=== PATIENT | female | born 1980 | race African-American/Black ===

== ENCOUNTER 2019-01-09 11:58 | Emergency (ER) ==
[~2019-01-09] VITALS: Ht 157.5 cm; Wt 86.4 kg
== END 2019-01-09 14:23 | disposition left against medical advice (07) ==
LOC: COL.ER 11:58
DX: R10.33 Periumbilical pain (principal)

== ENCOUNTER → 2023-04-07 | Outpatient (CLI) | payer OTHER | LOC: COL.LAB 12:17 | DX: J30.1 Allergic rhinitis due to pollen (principal); Z91.018 Allergy to other foods ==